=== PATIENT | male | born 1990 | race Caucasian/White ===

== ENCOUNTER 2018-08-02 20:09 | Emergency (ER) | payer OTHER ==
[~2018-08-02] VITALS: Ht 170.2 cm; Wt 102.3 kg
[2018-08-02 20:19] VITALS: BP 170/97
[2018-08-02] MEDS ORDERED: NEOM10DR45 OT (22:18)
[2018-08-02] MEDS ORDERED: IBUP-1984 PO (22:18)
== END 2018-08-02 22:41 | disposition home or self-care (01) ==
LOC: ER 20:11
DX: H60.92 Unspecified otitis externa, left ear (principal)
CPT/HCPCS: 99283